=== PATIENT | male | born 2000 | race Caucasian/White ===

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

== ENCOUNTER 2021-07-07 02:10 | Emergency (ER) | payer MEDICAID ==
[~2021-07-07] VITALS: Ht 180.3 cm; Wt 88.0 kg
--- NOTE | 2021-07-07 03:54 | NUR ---
EKG done. Pt angela well remained pink, no acute/resp distress.
[2021-07-07] MEDS ORDERED: ALBUTEROL INHALER 1 PUFF/90 MCG INHALER IH STA (05:08)
--- NOTE | 2021-07-07 05:18 | NUR ---
Pt pink, no acute/distress. Pt denies further questions re; aci.
[2021-07-07 05:36] VITALS: BP 120/80
== END 2021-07-07 05:37 | disposition home or self-care (01) ==
LOC: ER 02:11
DX: R07.9 Chest pain, unspecified (principal); R06.02 Shortness of breath; J45.909 Unspecified asthma, uncomplicated
CPT/HCPCS: 71045; 93005; 94640; 94760; 99284; 99285